=== PATIENT | male | born 1935 | race Caucasian/White ===

== ENCOUNTER 2016-04-26 09:19 | Day surgery (SDC) | payer MEDICARE, OTHER ==
[~2016-04-26 09:19] MED LIST: PHENYLEPHRINE 2.5% OPHTH 2 ML DROPS ONE
[2016-04-26] MEDS ORDERED: PHENYLEPHRINE 2.5% OPHTH 2 ML DROPS OPTH ONE (09:35)
[2016-04-26] MEDS ORDERED: KETOROLAC 0.45% OPHTH DROPS OPTH ONE (09:35)
[2016-04-26] MEDS ORDERED: CYCLOPENTOLATE 1% OPHTH DROPS 2 ML OPTH ONE ×2 (09:35→10:11)
[2016-04-26] MEDS ORDERED: PROPARACAINE 0.5% OPHTH DROPS 15 ML OPTH ONE ×2 (09:35→10:10)
[2016-04-26] MEDS ORDERED: LACTATED RINGERS 1,000 ML IV ONE (10:04)
[2016-04-26] MEDS ORDERED: BRIMONIDINE 0.2% OPHTH DROPS 5 ML OPTH ONE (10:10)
[2016-04-26] MEDS ORDERED: EPINEPHrine 1 MG/ML AMP IVP ONE (10:10)
[2016-04-26] MEDS ORDERED: CHONDR SULF/HYALURONATE SYRINGE IO ONE (10:10)
[2016-04-26] MEDS ORDERED: BSS/LIDOCAINE/EPINEPHRINE 1 ML SYRINGE IO ONE (10:11)
[2016-04-26] MEDS ORDERED: TRIAMCIN/MOXIFLOX/VANCO 1 ML VIAL IO ONE (10:11)
[2016-04-26] MEDS ORDERED: TIMOLOL 0.5% OPHTH DROPS OPTH ONE (10:11)
[2016-04-26] MEDS ORDERED: MIDAZOLAM 2 MG/2 ML VIAL IVP ONE (10:13)
== END 2016-04-26 09:20 | disposition home or self-care (01) ==
PROC: 08RK3JZ Replacement of Left Lens with Synthetic Substitute, Percutaneous Approach (ICD-10-PCS; principal; 2016-04-26 10:30)
DX: H25.812 Combined forms of age-related cataract, left eye (principal); H21.81 Floppy iris syndrome; N40.0 Benign prostatic hyperplasia without lower urinary tract symptoms; F17.200 Nicotine dependence, unspecified, uncomplicated; Z96.642 Presence of left artificial hip joint
CPT/HCPCS: 66984; A9270; J7120; V2632

== ENCOUNTER 2016-06-07 08:23 | Day surgery (SDC) | payer MEDICARE, OTHER ==
[2016-06-07] MEDS ORDERED: PHENYLEPHRINE 2.5% OPHTH 2 ML DROPS ONE (08:29)
[2016-06-07] MEDS ORDERED: LACTATED RINGERS 500 ML IV ONE (08:34)
[2016-06-07] MEDS ORDERED: BRIMONIDINE 0.2% OPHTH DROPS 5 ML OPTH ONE (10:13)
[2016-06-07] MEDS ORDERED: EPINEPHrine 1 MG/ML AMP IVP ONE (10:14)
[2016-06-07] MEDS ORDERED: BSS/LIDOCAINE/EPINEPHRINE 1 ML SYRINGE IO ONE ×2 (10:14)
[2016-06-07] MEDS ORDERED: CHONDR SULF/HYALURONATE SYRINGE IO ONE (10:14)
[2016-06-07] MEDS ORDERED: PROPARACAINE 0.5% OPHTH DROPS 15 ML OPTH ONE (10:14)
[2016-06-07] MEDS ORDERED: TRIAMCIN/MOXIFLOX/VANCO 1 ML VIAL IO ONE ×2 (10:14)
[2016-06-07] MEDS ORDERED: fentaNYL 100 MCG/2 ML VIAL IVP ONE (10:15)
[2016-06-07] MEDS ORDERED: MIDAZOLAM 2 MG/2 ML VIAL IVP ONE (10:15)
== END 2016-06-07 08:24 | disposition home or self-care (01) ==
PROC: 08RJ3JZ Replacement of Right Lens with Synthetic Substitute, Percutaneous Approach (ICD-10-PCS; principal; 2016-06-07 09:30)
DX: H25.811 Combined forms of age-related cataract, right eye (principal); Z90.49 Acquired absence of other specified parts of digestive tract; N40.0 Benign prostatic hyperplasia without lower urinary tract symptoms; Z96.649 Presence of unspecified artificial hip joint; F17.200 Nicotine dependence, unspecified, uncomplicated
CPT/HCPCS: 66984; A9270; V2632

== ENCOUNTER 2016-08-16 14:52 | Outpatient (CLI) | payer MEDICARE, OTHER ==
--- NOTE | 2016-08-17 09:38 | XRAY Report ---
THREE-VIEW RIGHT HAND: 08/16/2016 CLINICAL INDICATION: Hand pain. 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 There is no evidence of acute fracture or dislocation. N o radiopaque foreign body is seen in the soft tissues. IMPRESSION: OSTEOARTHRITIS. NO EVIDENCE OF FRACTURE. JOB #: [id number] EXT JOB #:[id number]
== END 2016-08-16 14:53 | disposition home or self-care (01) ==
LOC: DI.N 14:52
PROVIDERS: ATTEND Physician Assistant
DX: M18.11 Unilateral primary osteoarthritis of first carpometacarpal joint, right hand (principal); M19.041 Primary osteoarthritis, right hand

== ENCOUNTER 2018-02-12 13:14 | Emergency (ER) | payer MEDICARE, OTHER ==
--- NOTE | 2018-02-12 13:36 | ED Physician Documentation ---
PD HPI ABD PAIN - Stated complaint Stated Complaint: GROIN PX - Chief complaint Chief Complaint: General - History obtained from History obtained from: Patient - History of Present Illness Timing - onset: How many weeks ago (1) Timing - duration: Weeks (1) Timing - details: Still present, Waxing and waning Quality: Cramping, Aching, Pain (has had pain right inguinal area for a week or so, mild at times. Today had markedly increased pain with lump feeling there. No vomiting, no) Radiation: Right flank (Right is) Improved by: No: Eating Worsened by: No: Eating Associated symptoms: No: Fever, Nausea, Vomiting, Diarrhea PD PAST MEDICAL HISTORY - Past Medical History Cardiovascular: None Respiratory: None Neuro: None Endocrine/Autoimmune: None GI: None : Benign prostate hypertrophy HEENT: Chronic vision loss Psych: None Musculoskeletal: None Derm: None - Past Surgical History General: Cholecystectomy, Appendectomy Ortho: Hip replacement - Present Medications Home Medications: Ambulatory Orders Medication Instructions Recorded Confirmed Multivitamin [Multivitamins] 1 each PO DAILY 04/25/16 04/26/16 Tamsulosin [Flomax] 0.4 mg PO DAILY 04/25/16 04/26/16 Docusate Sodium 100 mg PO DAILY #30 capsule 02/12/18 Hydrocodone/Acetaminophen [Bradford 1 each PO Q6H PRN #20 tablet 02/12/18 5-325 Tablet] - Allergies Allergies/Adverse Reactions: Allergies Allergy/AdvReac Type Severity Reaction Status Date / Time No Known Drug Allergies Allergy Verified 02/12/18 13:37 - Social History Does the pt smoke?: Yes Smoking Status: Current every day smoker Does the pt drink ETOH?: No Does the pt have substance abuse?: No - Immunizations Immunizations are current?: No - POLST Patient has POLST: No Results - Vitals Vitals: Oxygen O2 Source Room air - Labs Labs: Laboratory Tests 02/12/18 14:45 Urine Color YELLOW Urine Clarity CLOUDY Urine pH 6.5 Ur Specific [place] 1.025 Urine Protein NEGATIVE Urine Glucose (UA) NEGATIVE Urine Ketones NEGATIVE Urine Occult Blood NEGATIVE Urine Nitrite NEGATIVE Urine Bilirubin NEGATIVE Urine Urobilinogen 0.2 (NORMAL) Ur Leukocyte Esterase NEGATIVE Urine RBC 0-5 Urine WBC 0-3 Ur Squamous Epith Cells FEW Squamous Amorphous Sediment Moderate Urine Bacteria Rare Urine Mucus Moderate Strands Urine Sperm PRESENT Ur Microscopic Review INDICATED Urine Culture Comments NOT INDICATED Departure - Departure Disposition: Home, Self Care Clinical Impression: Inguinal hernia Qualifiers: Obstruction and gangrene presence: without obstruction or gangrene Laterality: unilateral Recurrence: non-recurrent Qualified Code(s): K40.90 - Unilateral inguinal hernia, without obstruction or gangrene, not specified as recurrent Condition: Stable Record reviewed to determine appropriate education?: Yes Instructions: ED Hernia Inguinal Follow-Up: Misha Bell MD [Provider Admit Priv/Credential] - Michelle Amado PA-C [Primary Care Provider] - Prescriptions: Docusate Sodium 100 mg PO DAILY #30 capsule Hydrocodone/Acetaminophen [Bradford 5-325 Tablet] 1 each PO Q6H PRN #20 tablet PRN Reason: Pain Comments: Drink lots of fluids. Daily stool softener to ensure you have easy soft stools. No heavy lifting or vigorous activity. Return to the ER if you have significant pain in the area and the hernia feels hard and will not push in. Otherwise follow-up with surgery. I did talk with Dr. Bell in the office has your name so give them a call to make an appointment and that should be in the next few days. They will talk about hernia repair and schedule you for that when you see the surgeon. Use Tylenol or ibuprofen for pain. Add hydrocodone if needed for worse pain. Discharge Date/Time: 02/12/18 15:31
[2018-02-12] MEDS: NAPROXEN 250 MG TABLET PO STA (13:57)
[2018-02-12] MEDS: traMADol 50 MG TABLET PO STA (13:57)
[2018-02-12 14:50] VITALS: BP 142/97
[2018-02-12 14:57] LABS: BILIRUBIN,URINE NEGATIVE (NEGATIVE); GLUCOSE, URINE (UA) NEGATIVE (NEGATIVE); KETONES,URINE (UA) NEGATIVE (NEGATIVE); LEUKOCYTE ESTERASE, URINE NEGATIVE (NEGATIVE); NITRITE,URINE NEGATIVE (NEGATIVE); OCCULT BLOOD,URINE NEGATIVE (NEGATIVE); PH,URINE 6.5 PH (5.0-7.5); PROTEIN,URINE NEGATIVE (NEGATIVE); UROBILINOGEN,URINE 0.2 (NORMAL) E.U./dL (NORMAL)
--- NOTE | 2018-02-12 14:59 | CT Report ---
Reason: right inguinal pain; possible hernia Procedure Date: 02/12/2018 Accession Number: [id number] / [id number] Procedure: CT - Abdomen/Pelvis W/O CPT Code: FULL RESULT: EXAM: CT ABDOMEN AND PELVIS (CT KUB) EXAM DATE: 02/12/2018 02:41 PM. CLINICAL HISTORY: Right inguinal pain; possible hernia. COMPARISONS: ABD LIMITED 08/09/2008 7:27 AM. TECHNIQUE: Routine axial helical CT imaging was performed through the abdomen and pelvis without IV contrast. Reconstructions: Coronal and sagittal. In accordance with CT protocol optimization, one or more of the following dose reduction techniques were utilized for this exam: automated exposure control, adjustment of mA and/or KV based on patient size, or use of iterative reconstructive technique. FINDINGS: Lung Bases: Mild linear opacities at the left lung base may be due to ectatic aorta. Right Kidney/Ureter: No stones, hydronephrosis, or hydroureter. No perinephric fat stranding. Left Kidney/Ureter: No stones, hydronephrosis, or hydroureter. No perinephric fat stranding. Other Solid Organs: Noncontrast images of the solid organs are grossly unremarkable. Gallbladder/Bile Ducts: Unremarkable. Peritoneal Cavity: No free fluid, free air or juan adenopathy. Bowel is grossly unremarkable. Pelvic Organs: There is an indirect right inguinal hernia which contains a loop of small bowel. Vasculature: Atherosclerosis without aneurysm. Other: None. IMPRESSION: Indirect small bowel loop containing right inguinal hernia. RADIA
[2018-02-12 15:05] LABS: CLARITY,URINE CLOUDY (CLEAR)
[2018-02-12 15:12] LABS: RBC,URINE 0-5 /HPF (0-5)
[2018-02-12 15:13] LABS: AMORPHOUS SEDIMENT,UR Moderate /LPF; BACTERIA,URINE Rare /HPF (None Seen); MUCUS,URINE Moderate Strands; SPERM,URINE PRESENT; SQUAMOUS EPITHELIAL CELL,UR FEW Squamous (<= Few)
[2018-02-12] MEDS: HYDROcod/ACETAM 5/325 MG TABLET PO STA (15:19)
== END 2018-02-12 15:31 | disposition home or self-care (01) ==
LOC: ED 13:14
DX: K40.90 Unilateral inguinal hernia, without obstruction or gangrene, not specified as recurrent (principal); F17.200 Nicotine dependence, unspecified, uncomplicated
CPT/HCPCS: 74176; 81001; 99283; A9270; 81003; 87086

== ENCOUNTER 2018-05-21 08:44 | Outpatient (CLI) | payer MEDICARE, OTHER ==
--- NOTE | 2018-05-21 10:30 | CT Report ---
Reason: HEADACHE Procedure Date: 05/21/2018 Accession Number: [id number] / [id number] Procedure: CT - HEAD WO CPT Code: FULL RESULT: EXAM: CT HEAD EXAM DATE: 05/21/2018 08:58 AM. CLINICAL HISTORY: Headache. COMPARISON: CT head 12/09/2008. TECHNIQUE: Multiaxial CT images were obtained from the foramen magnum to the vertex. Reformats: Sagittal and coronal. IV contrast: None. In accordance with CT protocol optimization, one or more of the following dose reduction techniques were utilized for this exam: automated exposure control, adjustment of mA and/or KV based on patient size, or use of iterative reconstructive technique. FINDINGS: Parenchyma: No intraparenchymal hemorrhage. No evidence of mass, midline shift, or CT findings of infarction. Christiansen-white differentiation is distinct. Interval development of low density in the periventricular hemispheric white matter, consistent with chronic microvascular ischemic change. Extraaxial Spaces: Normal for age. No subdural or epidural collections identified. Ventricles: Normal in size and position. Sinuses and Orbits: Imaged orbits, and mastoids show no significant abnormality. Mild mucosal thickening in several right-sided ethmoid air cells without air-fluid level or bone dehiscence. Other paranasal sinuses are clear. Bones: No evidence of fracture or calvarial defect. Other: None. IMPRESSION: 1. Senescent changes commensurate with age. 2. Minor right ethmoid sinus mucosal thickening without air-fluid level. RADIA
== END 2018-05-21 08:45 | disposition home or self-care (01) ==
LOC: DI 08:44
PROVIDERS: ATTEND Specialist
DX: R51 Headache (principal)
CPT/HCPCS: 70450

== ENCOUNTER 2020-04-19 09:59 | Outpatient (CLI) | payer MEDICARE, OTHER ==
--- NOTE | 2020-04-19 14:47 | XRAY Report ---
PROCEDURE: Shoulder 3 View LT INDICATIONS: ROTATOR CUFF SYNDROME OF L SHOULDER TECHNIQUE: 3 views of the shoulder were acquired. COMPARISON: None. FINDINGS: Bones: No fractures or dislocations. Moderate degenerative joint space loss and spurring at the acro mioclavicular joint. No suspicious bony lesions. Visualized ribs appear intact. Soft tissues: No suspicious soft tissue calcifications. IMPRESSION: Mild AC joint degeneration. Reviewed by: Cristina Smart MD on 04/19/2020 1:46 PM [place] Approved by: Cristina Smart MD on 04/19/2020 1:46 PM AKST Station ID: [id number]
== END 2020-04-19 10:00 | disposition home or self-care (01) ==
LOC: DI.N 09:59
PROVIDERS: ATTEND Internal Medicine
DX: M75.102 Unspecified rotator cuff tear or rupture of left shoulder, not specified as traumatic (principal); M19.012 Primary osteoarthritis, left shoulder

== ENCOUNTER 2021-11-21 10:49 | Outpatient (CLI) | payer MEDICARE, OTHER ==
[2021-11-21 13:25] LABS: POTASSIUM 4.2 mmol/L (3.5-5.0)
== END 2021-11-21 10:50 | disposition home or self-care (01) ==
LOC: LAB.N 10:49
PROVIDERS: ATTEND Physician Assistant Medical
DX: U07.1 COVID-19 (principal)
CPT/HCPCS: 36415; 80048; U0004